=== PATIENT | male | born 1995 | race Caucasian/White ===

== ENCOUNTER 2016-04-13 12:50 | Emergency (ER) | payer MEDICAID ==
[2016-04-13] MEDS ORDERED: CLINDAMYCIN 150 MG CAPSULE PO STA (13:00)
[2016-04-13] MEDS ORDERED: CLINDAMYCIN 150 MG CAPSULE PO ONE (13:04)
== END 2016-04-13 13:27 | disposition home or self-care (01) ==
DX: K08.89 Other specified disorders of teeth and supporting structures (principal); K02.9 Dental caries, unspecified
CPT/HCPCS: 99283; A9270

== ENCOUNTER 2017-03-27 17:19 | Emergency (ER) | payer MEDICAID ==
--- NOTE | 2017-03-27 18:17 | ED Physician Documentation ---
PD HPI CHEST PAIN - Stated complaint Stated Complaint: CP/SOA/HIGH BP - Chief complaint Chief Complaint: Cardiac - History obtained from History obtained from: Patient - History of Present Illness Timing - onset: How many weeks ago (1) Timing - onset during: Rest. No: Exertion Timing - duration: Seconds Timing - details: Intermittant (he has had intermittent brief feelings of dyspnea and heart going fast. He has not counted the rate. Not exertional. Seems to occur when anxious.) Quality: Tightness Location: Substernal Radiation: No: Jaw, Neck Worsened by: No: Exertion, Inspiration Associated symptoms: Shortness of air, Feeling faint / dizzy, General Weakness, Palpitations. No: Diaphoresis, Nausea Similar symptoms before: Has not had sx before Recently seen: Not recently seen Review of Systems Constitutional: denies: Fever, Chills Nose: reports: Congestion. denies: Rhinorrhea / runny nose Throat: denies: Sore throat Respiratory: reports: Cough (for several days) GI: denies: Abdominal Pain, Nausea, Vomiting, Diarrhea : denies: Dysuria, Frequency Skin: denies: Rash, Lesions Neurologic: denies: Generalized weakness, Focal weakness, Numbness, Near syncope Psychiatric: reports: Anxiety. denies: Depressed, Suicidal PD PAST MEDICAL HISTORY - Past Medical History Past Medical History: Yes GI: Cholelithiasis - Past Surgical History Past Surgical History: No - Present Medications Home Medications: Ambulatory Orders Medication Instructions Recorded Confirmed raNITIdine [Zantac] 150 mg PO DAILY #20 tablet 03/27/17 - Allergies Allergies/Adverse Reactions: Allergies Allergy/AdvReac Type Severity Reaction Status Date / Time Penicillins Allergy Unknown Verified 03/27/17 17:37 - Living Situation Living Situation: reports: With family Living Arrangement: reports: At home - Social History Does the pt smoke?: No Smoking Status: Never smoker Does the pt drink ETOH?: No Does the pt have substance abuse?: No - Immunizations Immunizations are current?: Yes - POLST Patient has POLST: No PD ED PE NORMAL - Vitals Vital signs reviewed: Yes - General General: Alert and oriented X 3, No acute distress, Well developed/nourished - HEENT HEENT: PERRL, Pharynx benign - Neck Neck: Supple, no meningeal sign, No adenopathy - Cardiac Cardiac: RRR, No murmur - Respiratory Respiratory: Clear bilaterally, Other (no chestwall tenderness) - Abdomen Abdomen: Normal bowel sounds, Soft, Non tender, Non distended - Back Back: No CVA TTP - Derm Derm: Normal color, Warm and dry - Extremities Extremities: No tenderness to palpate, Normal ROM s pain - Neuro Neuro: Alert and oriented X 3, No motor deficit, Normal speech - Psych Psych: Normal mood Results - Vitals Vitals: Vital Signs - 24 hr 03/27/17 03/27/17 17:27 21:42 Temperature 36.6 C 36.6 C Heart Rate 110 H 100 Respiratory 18 20 Rate Blood Pressure 140/92 H 147/86 H O2 Saturation 100 100 Oxygen O2 Source Room air - EKG (time done) 17:26 Rate: Rate (enter#) (105) Rhythm: Sinus tachycardia [place]: Normal Intervals: Normal [place] QRS: Normal Ischemia: Normal ST segments. No: ST elevation c/w ischemia, ST depression - Labs Labs: Laboratory Tests 03/27/17 03/27/17 03/27/17 19:00 19:00 19:00 WBC 11.3 H RBC 6.10 Hgb 16.3 Hct 49.2 MCV 80.6 MCH 26.7 L MCHC 33.1 RDW 13.7 Plt Count 436 MPV 8.8 Neut # 8.4 H Lymph # 1.7 Divide # 0.8 Eos # 0.2 Baso # 0.1 Absolute Nucleated RBC 0.01 Nucleated RBC % 0.1 Sodium 139 Potassium 3.6 Chloride 105 Carbon Dioxide 27 Anion Gap 7.0 BUN 11 Creatinine 1.0 Estimated GFR (MDRD) 94 Glucose 105 H Calcium 9.5 Total Bilirubin 2.1 H AST 22 ALT 23 Alkaline Phosphatase 98 Total Protein 8.5 H Albumin 4.8 Globulin 3.7 Albumin/Globulin Ratio 1.3 Lipase 13 L TSH 0.70 - Rads (name of study) chest Radiology: Prelim report reviewed (no acute process) RUQ US Radiology: Prelim report reviewed (gallbladder polpys. no likely stones. Normal wall thickness and CBD is normal. ) PD MEDICAL DECISION MAKING - ED course Complexity details: reviewed results, considered differential (seems likely musculoskeletal, though could be episodes of reflux. He is concerned about heart related and is generally anxious. Did some labs which showed a bump in bili (he does have some URI currently so may be that). Got U/S to ensure not biliary. He has some polyps, likely not stones. GB appears otherwise okay. ), d/ w patient, d/w family (mom) Departure - Departure Disposition: 01 Home, Self Care Clinical Impression: Chest pain Qualifiers: Chest pain type: other chest pain Qualified Code(s): R07.89 - Other chest pain Condition: Stable Record reviewed to determine appropriate education?: Yes Instructions: ED Chest Pain Atypical Unkn Cause Follow-Up: [facility] [Provider Group] Prescriptions: raNITIdine [Zantac] 150 mg PO DAILY #20 tablet Comments: This could possibly be reflux and so you could use some ranitidine 150 mg daily. He continues to have slight elevation of your bilirubin and that would want to get rechecked. Your blood pressure was transiently high and recheck it when you are feeling well over the next several days and next week. Follow-up with your primary care at the [facility] at the upcoming appointment. At least one of your blood pressure readings in the ER today was elevated above the normal level. If you have diagnosed high blood pressure in the past, please be sure you are taking your BP medications and eating low salt diet. If you do not have know high BP, then being high today does not mean it is a penitentiary issue. It might be reactively high to the situation that has you here. You should follow up with your primary care to have the blood pressure checked again in the next few days/week or so to see if it is persistently high. If so, then you may need medication or changes in diet/lifestyle to treat it. Discharge Date/Time: 03/27/17 21:42
[2017-03-27] MEDS ORDERED: IBUPROFEN 600 MG TABLET PO STA (18:45)
[2017-03-27 19:07] LABS: BASOPHILS # (AUTO) 0.1 10^3/uL (0.0-0.1); BASOPHILS % (AUTO) 1.2 %; EOSINOPHILS # (AUTO) 0.2 10^3/uL (0.0-0.7); EOSINOPHILS % (AUTO) 1.8 %; HGB - HEMOGLOBIN 16.3 g/dL (14.0-18.0); LYMPHOCYTES # (AUTO) 1.7 10^3/uL (1.5-3.5); LYMPHOCYTES % (AUTO) 15.2 %; MEAN CORPUSCULAR HEMOGLOBIN 26.7 pg (27.0-31.0); MEAN CORPUSCULAR HGB CONC 33.1 g/dL (32.0-36.0); MEAN CORPUSCULAR VOLUME 80.6 fL (80.0-94.0); MEAN PLATELET VOLUME 8.8 fL (7.4-11.4); MONOCYTES # (AUTO) 0.8 10^3/uL (0.0-1.0); MONOCYTES % (AUTO) 7.4 %; NEUTROPHILS # (AUTO) 8.4 10^3/uL (1.5-6.6); NEUTROPHILS % (AUTO) 74.4 %; PLT - PLATELET COUNT 436 10^3/uL (130-450); RED CELL DISTRIBUTION WIDTH 13.7 % (12.0-15.0); WHITE BLOOD COUNT 11.3 x10^3/uL (4.8-10.8)
--- NOTE | 2017-03-27 19:07 | XRAY Report ---
EXAM: CHEST RADIOGRAPHY EXAM DATE: 03/27/2017 06:56 PM. CLINICAL HISTORY: Chest pain left sided. COMPARISON: None. TECHNIQUE: 2 views. FINDINGS: Lungs/Pleura: No focal opacities evident. No pleural effusion. No pneumothorax. Normal volumes. Mediastinum: Heart and mediastinal contours are unremarkable. Other: None. IMPRESSION: Negative chest [facility] Referring Provider Line: [phone] SITE ID: [id number]
[2017-03-27 19:23] LABS: ALBUMIN 4.8 g/dL (3.2-5.5); ALBUMIN/GLOBULIN RATIO 1.3 (1.0-2.2); BILIRUBIN,TOTAL 2.1 mg/dL (0.2-1.0); CALCIUM 9.5 mg/dL (8.5-10.3); TOTAL PROTEIN 8.5 g/dL (6.7-8.2)
--- NOTE | 2017-03-27 21:20 | Ultrasound Preliminary Report ---
Exam: US ABDOMEN LIMITED IMPRESSION: 1. Several very small gallbladder polyps. 2. No cholelithiasis nor cholecystitis. [facility] SITE ID: [id number]
--- NOTE | 2017-03-27 21:22 | Ultrasound Report ---
EXAM: ABDOMEN ULTRASOUND LIMITED, RUQ EXAM DATE: 03/27/2017 08:54 PM. CLINICAL HISTORY: Elevated bili and upper abdominal pain intermittent. Patient is not NPO. COMPARISON: 03/14/2010. TECHNIQUE: Real-time scanning was performed with static images obtained. FINDINGS: Liver: Normal in size and echotexture. 14.7 cm. Main portal vein flow: Hepatopetal. Gallbladder: Several 4 mm and smaller non-mobile echogenic foci adjacent to the wall without shadowin g consistent with polyps. No stones, wall thickening, or sonographic Ray's sign. Biliary System: CBD measures 2 mm. No intrahepatic or extrahepatic ductal dilatation. Other: Normal right kidney. No free fluid. IMPRESSION: 1. Several very small gallbladder polyps. 2. No cholelithiasis nor cholecystitis. [facility] Referring Provider Line: [phone] SITE ID: [id number]
[2017-03-27] MEDS ORDERED: FAMOTIDINE 20 MG TABLET PO STA (21:34)
[2017-03-27 21:42] VITALS: BP 147/86
== END 2017-03-27 21:42 | disposition home or self-care (01) ==
LOC: ED 17:19
DX: R07.89 Other chest pain (principal); K21.9 Gastro-esophageal reflux disease without esophagitis; R03.0 Elevated blood-pressure reading, without diagnosis of hypertension; R17 Unspecified jaundice; F41.9 Anxiety disorder, unspecified
CPT/HCPCS: 36415; 71046; 76705; 80053; 83690; 84443; 85025; 93005; 99283; 99284; A9270

== ENCOUNTER 2017-05-02 15:14 | Outpatient (CLI) | payer MEDICAID ==
[2017-05-02 19:08] LABS: BASOPHILS # (AUTO) 0.1 10^3/uL (0.0-0.1); BASOPHILS % (AUTO) 0.5 %; EOSINOPHILS # (AUTO) 0.1 10^3/uL (0.0-0.7); EOSINOPHILS % (AUTO) 1.1 %; HGB - HEMOGLOBIN 14.5 g/dL (14.0-18.0); LYMPHOCYTES # (AUTO) 2.2 10^3/uL (1.5-3.5); LYMPHOCYTES % (AUTO) 19.7 %; MEAN CORPUSCULAR HEMOGLOBIN 27.2 pg (27.0-31.0); MEAN CORPUSCULAR HGB CONC 33.3 g/dL (32.0-36.0); MEAN CORPUSCULAR VOLUME 81.5 fL (80.0-94.0); MEAN PLATELET VOLUME 9.1 fL (7.4-11.4); MONOCYTES # (AUTO) 0.7 10^3/uL (0.0-1.0); MONOCYTES % (AUTO) 6.3 %; NEUTROPHILS # (AUTO) 8.2 10^3/uL (1.5-6.6); NEUTROPHILS % (AUTO) 72.4 %; PLT - PLATELET COUNT 390 10^3/uL (130-450); RED BLOOD COUNT 5.35 10^6/uL (4.70-6.10); RED CELL DISTRIBUTION WIDTH 13.7 % (12.0-15.0); WHITE BLOOD COUNT 11.4 x10^3/uL (4.8-10.8)
[2017-05-02 19:36] LABS: ALBUMIN 4.6 g/dL (3.2-5.5); ALBUMIN/GLOBULIN RATIO 1.4 (1.0-2.2); CALCIUM 9.3 mg/dL (8.5-10.3); TOTAL PROTEIN 7.8 g/dL (6.7-8.2)
== END 2017-05-02 15:15 | disposition home or self-care (01) ==
LOC: LAB.N 15:14
PROVIDERS: ATTEND Physician Assistant Medical
DX: E80.7 Disorder of bilirubin metabolism, unspecified (principal)
CPT/HCPCS: 36415; 80053; 85025

== ENCOUNTER 2017-07-12 08:00 | Outpatient (CLI) | payer MEDICAID ==
[2017-07-12 18:47] LABS: BILIRUBIN,URINE NEGATIVE (NEGATIVE); GLUCOSE, URINE (UA) NEGATIVE (NEGATIVE); KETONES,URINE (UA) NEGATIVE (NEGATIVE); LEUKOCYTE ESTERASE, URINE NEGATIVE (NEGATIVE); NITRITE,URINE NEGATIVE (NEGATIVE); OCCULT BLOOD,URINE NEGATIVE (NEGATIVE); PROTEIN,URINE NEGATIVE (NEGATIVE); UROBILINOGEN,URINE 0.2 (NORMAL) E.U./dL (NORMAL)
[2017-07-12 19:04] LABS: BACTERIA,URINE None Seen /HPF (None Seen); CLARITY,URINE CLEAR (CLEAR); RBC,URINE 0-5 /HPF (0-5); SQUAMOUS EPITHELIAL CELL,UR NONE SEEN (<= Few)
== END 2017-07-12 08:01 ==
LOC: LAB.R 08:00
PROVIDERS: ATTEND Physician Assistant Medical
DX: N50.812 Left testicular pain (principal)
CPT/HCPCS: 81001; 87086

== ENCOUNTER 2017-07-31 16:51 | Outpatient (CLI) | payer MEDICAID ==
--- NOTE | 2017-08-01 14:40 | Ultrasound Report ---
Procedure Date: 07/31/2017 Accession Number: [id number] / [id number] Procedure: US - Testicle CPT Code: FULL RESULT: EXAM: Scrotal ultrasound DATE: 07/31/2017 6:30 PM CLINICAL HISTORY: TESTICULAR PAIN COMPARISON: None. TECHNIQUE: Real-time scanning was performed with static images obtained, including color-flow. FINDINGS: Right: Testis: 4.4 x 2 x 3.1 cm. Normal size and echotexture. No mass, calcification, or abnormal blood flow. Epididymis: 3.3 x 8.6 x 1 cm. Normal size and echotexture. No mass or abnormal blood flow. Hydrocele: None. Varicocele: None. Left: Testis: 4.2 x 2 x 3 cm. Normal size and echotexture. No mass, calcification, or abnormal blood flow. Epididymis: 3.1 x 1 x 1 cm. Normal size and echotexture. No mass or abnormal blood flow. Simple cyst 0.3 x 0.3 x 0.2 cm. Hydrocele: None. Varicocele: None. IMPRESSION: 0.3 x 0.3 x 0.2 cm left epididymal head cyst; otherwise negative scrotal ultrasound. [facility]
== END 2017-07-31 16:52 | disposition home or self-care (01) ==
LOC: DI 16:51
PROVIDERS: ATTEND Physician Assistant Medical
DX: N50.3 Cyst of epididymis (principal)
CPT/HCPCS: 76870

== ENCOUNTER 2020-07-31 15:48 | Emergency (ER) | payer MEDICAID ==
[2020-07-31 15:57] VITALS: BP 174/90
[2020-07-31] MEDS ORDERED: CLINDAMYCIN 150 MG CAPSULE PO STA (16:28)
--- NOTE | 2020-07-31 16:30 | ED Physician Documentation ---
History of Present Illness - Stated complaint Stated Complaint: BROKEN TOOTH/SWOLLEN CHEEK - Chief complaint Chief Complaint: Heent - History obtained from History obtained from: Patient - History of Present Illness Timing: Today Pain level max: 5 Pain level now: 4 - Additonal information Additional information: 24-year-old male states that he has a broken left lower molar. He states that he started having facial swelling today. Concerned about infection. No fevers. No chills. Worse with eating and drinking. Nothing makes it better. Review of Systems Constitutional: denies: Fever, Chills Respiratory: denies: Cough GI: denies: Vomiting, Diarrhea Skin: denies: Rash Musculoskeletal: denies: Neck pain, Back pain Neurologic: denies: Headache PD PAST MEDICAL HISTORY - Past Medical History Past Medical History: Yes GI: Cholelithiasis - Past Surgical History Past Surgical History: No - Present Medications Home Medications: Ambulatory Orders Medication Instructions Recorded Confirmed raNITIdine [Zantac] 150 mg PO DAILY #20 tablet 03/27/17 clindamycin HCL [Cleocin HCl] 300 mg PO Q6H #40 cap 07/31/20 - Allergies Allergies/Adverse Reactions: Allergies Allergy/AdvReac Type Severity Reaction Status Date / Time Penicillins Allergy Unknown Verified 07/31/20 15:57 - Social History Does the pt smoke?: No Smoking Status: Never smoker Does the pt drink ETOH?: No Does the pt have substance abuse?: No - Immunizations Immunizations are current?: Yes - POLST Patient has POLST: No PD ED PE NORMAL - Vitals Vital signs reviewed: Yes - General General: Alert and oriented X 3, No acute distress - HEENT HEENT: Moist mucous membranes, Other (Tenderness to palpation near the left mandible. Mild swelling. No drainable abscess. There is a fractured left lower molar. No drainage. Normal phonation. No trismus. No Bryson's angina) - Neck Neck: Supple, no meningeal sign - Derm Derm: Warm and dry - Neuro Neuro: Alert and oriented X 3 Results - Vitals Vitals: Vital Signs - 24 hr 07/31/20 15:53 Temperature 36.6 C Heart Rate 90 Respiratory 16 Rate Blood Pressure 174/90 H O2 Saturation 96 Oxygen O2 Source Room air PD MEDICAL DECISION MAKING - ED course Complexity details: considered differential, d/w patient ED course: Patient with dental caries and mild swelling. He states that he cannot take penicillins. Will place on clindamycin. He will follow up with his dentist on Sunday. Normal phonation. No trismus. No drainable abscess. Patient counseled regarding signs and symptoms for which I believe and urgent re- evaluation would be necessary. Patient with good understanding of and agreement to plan and is comfortable going home at this time This document was made in part using voice recognition software. While efforts are made to proofread this document, sound alike and grammatical errors may occur. Departure - Departure Disposition: 01 Home, Self Care Clinical Impression: Dental caries Condition: Good Instructions: ED Tooth Pain, ED Cavity Dental Follow-Up: your,dentist on sunday [Other] Prescriptions: clindamycin HCL [Cleocin HCl] 300 mg PO Q6H #40 cap Comments: Take all antibiotics until gone. Return if you worsen. Follow-up with your dentist on Sunday for further care. Discharge Date/Time: 07/31/20 16:44
== END 2020-07-31 16:44 | disposition home or self-care (01) ==
LOC: ED 15:48
DX: S02.5XXA Fracture of tooth (traumatic), initial encounter for closed fracture (principal); X58.XXXA Exposure to other specified factors, initial encounter; K02.9 Dental caries, unspecified; Z88.0 Allergy status to penicillin
CPT/HCPCS: 99282; 99284; A9270